=== PATIENT | female | born 1965 | race Caucasian/White ===

== ENCOUNTER → 2018-02-17 | Outpatient (REF) | payer BC ==
[2018-02-17 14:14] LABS: FERRITIN 124 NG/ML (8-252); IRON (FE) 126 UG/DL (50-170); PERCENT SATURATION 39.7 % (13.2-45.0); TOTAL IRON BINDING CAPACITY 317 UG/DL (250-450)
== END ==
LOC: M LAB REF 13:14
DX: D50.9 Iron deficiency anemia, unspecified (principal)

== ENCOUNTER → 2018-08-18 | Outpatient (REF) | payer BC ==
[~2018-08-18] MED LIST: ALLE25CA PO; ASPI81TA85 PO; LASI20TA OR; LOVE1INJ SC; POTA10CA2 OR; TYLE167L PO; WARF5VL PO; WELL100T OR; XARE15TA PO
[2018-08-18 12:43] LABS: PERCENT SATURATION 37.9 % (13.2-45.0)
[2018-08-18 13:05] LABS: TOTAL 25(OH) VITAMIN D 73.5 NG/ML (30.0-100.0)
== END ==
LOC: M LAB REF 11:57
PROVIDERS: ATTEND Nurse Practitioner Adult Health
DX: D48.5 Neoplasm of uncertain behavior of skin (principal); Z98.84 Bariatric surgery status

== ENCOUNTER → 2019-03-02 | Outpatient (REF) | payer BC | LOC: M LAB REF 12:21 | PROVIDERS: ATTEND Nurse Practitioner Adult Health | DX: D50.9 Iron deficiency anemia, unspecified (principal) ==

== ENCOUNTER 2024-01-02 15:25 | Emergency (ER) | payer BC ==
[~2024-01-02] VITALS: Ht 152.4 cm; Wt 86.0 kg
[~2024-01-02 15:25] MED LIST changes: -ASPI81TA85 PO; +ASPI81TA86 PO
[2024-01-02 15:51] LABS: BASO # 0.1 10^3/uL (0.0-0.2); BASO % 0.8 % (0.0-1.0); EOS # 0.1 10^3/uL (0.0-0.5); EOS % 1.5 % (0.0-3.0); HEMOGLOBIN 12.6 g/dl (12.0-15.5); LYMPH # 2.5 10^3/uL (1.5-5.0); LYMPH % 33.9 % (24.0-44.0); MEAN CORPUSCULAR HEMOGLOBIN 29.6 pg (27.0-33.0); MEAN CORPUSCULAR HGB CONC 32.3 g/dl (32.0-36.5); MEAN CORPUSCULAR VOLUME 91.8 fl (80.0-96.0); MONO # 0.8 10^3/uL (0.0-0.8); MONO % 10.5 % (2.0-8.0); NEUTROPHILS # 3.9 10^3/uL (1.5-8.5); PLATELET COUNT, AUTOMATED 323 10^3/uL (150-450); RED BLOOD COUNT 4.25 10^6/uL (4.00-5.40); WHITE BLOOD COUNT 7.4 10^3/uL (4.0-10.0)
[2024-01-02] MEDS ORDERED: PANT40TA29 PO (15:52)
[2024-01-02 16:04] LABS: INR 1.01; PARTIAL THROMBOPLASTIN TIME 29.9 SECONDS (24.8-34.2)
[2024-01-02 16:12] LABS: ALKALINE PHOSPHATASE 90 U/L (46-116); ALT/SGPT 18 U/L (7.0-40); AST/SGOT 29 U/L (<34); BILIRUBIN,DIRECT 0.1 MG/DL (<0.4); BILIRUBIN,TOTAL 0.4 MG/DL (0.3-1.2); BLOOD UREA NITROGEN 13 MG/DL (9-23); CARBON DIOXIDE LEVEL 24 MMOL/L (20-31); CHLORIDE LEVEL 107 MMOL/L (98-107); CK-MB VALUE MASS < 1.0 NG/ML (<3.6); CREATININE FOR GFR 0.76 MG/DL (0.55-1.30); GLOMERULAR FILTRATION RATE > 60.0 (>51); GLUCOSE, FASTING 95 MG/DL (60-100); SODIUM LEVEL 137 MMOL/L (136-145); TOTAL PROTEIN 6.9 G/DL (5.7-8.2)
[2024-01-02 16:17] LABS: CPK CREATINE PHOSPHOKINASE 94 U/L (34-145); MB/CK RELATIVE INDEX 1.06 (< OR =4)
[2024-01-02] MEDS ORDERED: ISOVUE-370 76% 100ML VIAL As Ordered ONE (17:07)
[2024-01-02 17:41] LABS: CK-MB VALUE MASS < 1.0 NG/ML (<3.6)
[2024-01-02 17:42] LABS: CPK CREATINE PHOSPHOKINASE 85 U/L (34-145); MB/CK RELATIVE INDEX 1.17 (< OR =4)
[2024-01-02 18:37] VITALS: BP 129/69; TEMP 97; O2SAT 99
== END 2024-01-02 18:55 | disposition home or self-care (01) ==
LOC: M ED 15:25
DX: R07.9 Chest pain, unspecified (principal); K21.9 Gastro-esophageal reflux disease without esophagitis; Z88.0 Allergy status to penicillin; Z88.1 Allergy status to other antibiotic agents; Z88.2 Allergy status to sulfonamides; Z88.5 Allergy status to narcotic agent; Z91.041 Radiographic dye allergy status; Z98.84 Bariatric surgery status; Z79.899 Other long term (current) drug therapy
CPT/HCPCS: 36415; 71045; 71275; 80048; 80076; 82550; 82553; 84484; 85025; 85610; 85730; 93005; 93041; 94760; 99285; Q9967